=== PATIENT | male | born 1985 | race Caucasian/White ===

== ENCOUNTER 2017-11-22 12:48 | Inpatient (IN) | payer OTHER ==
[2017-11-22 13:46] VITALS: BMI 23.3
--- NOTE | 2017-11-22 15:28 | HP ---
COWS - Scale Resting Pulse: 1= MI 81-100 Sweatin=Flushed/Facial Moisture Restless Observation: 3= Extraneous Movement Pupil Size: 0= Normal to Room Light Bone or Joint Aches: 4=Acute Joint/Muscle Pain Runny Nose/ Eye Tearin= Runny Nose/Eyes GI Upset > 30mins: 3= Vomiting/Diarrhea Tremor Observation: 1= Tremor [place], Not Seen Yawning Observation: 2= >3x During Session Anxiety or Irritability: 2=Irritable/Anxious Goose Flesh Skin: 0=Smooth Skin COWS Score: 20 CIWA Score - CIWA Score Nausea/Vomitin Muscle Tremors: 3 Anxiety: 4-Mod. Anxious/Guarded Agitation: 4-Moderately Restless Paroxysmal Sweats: 3 Orientation: 2-Disoriented Date<2 days Tacttile Disturbances: 2-Mild Itch/Numbness/Burn Auditory Disturbances: 0-None Visual Disturbances: 0-None Headache: 1-Very Mild CIWA-Ar Total Score: 24 Admission ROS [facility] - HPI Chief Complaint: " I want to try clean myself up a little bit and leave a better life for my family" Allergies/Adverse Reactions: Allergies Allergy/AdvReac Type Severity Reaction Status Date / Time No Known Allergies Allergy Verified 11/22/17 14:14 History of Present Illness: 32 year old male with a 16 year history of poly substance abuse presents for detox. This is pt's first visit here but states he had detox this last October at [facility]. Denies any remarkable sober periods. Denies past or present SI. Hx of Thyroid CA, Thyroidectomy (2017) (on Synthroid. Exam Limitations: Other (Anxious, Agitated) - Ebola screening Have you traveled outside of the country in the last 21 days: No (N) Have you had contact with anyone from an Ebola affected area: No Have you been sick,other than usual withdrawal symptoms: No Do you have a fever: No - Review of Systems Constitutional: No Symptoms Reported EENT: reports: Hearing Loss (Dimished hearing in R ear), Other (wears incisor dentures) Respiratory: reports: No Symptoms reported Cardiac: reports: Lightheadedness GI: reports: Vomiting : reports: No Symptoms Reported Musculoskeletal: reports: Back Pain Integumentary: reports: Bruising Neuro: reports: Headache, Tingling Endocrine: reports: Intolerance to Cold Hematology: reports: Anemia Psychiatric: reports: Agitated, Anxious Other Systems: Reviewed and Negative Patient History - Patient Medical History Hx Anemia: No Hx Asthma: No Hx Chronic Obstructive Pulmonary Disease (COPD): No Hx Cancer: No Hx Cardiac Disorders: No Hx Congestive Heart Failure: No Hx Hypertension: No Hx Hypercholesterolemia: No Hx Pacemaker: No HX Cerebrovascular Accident: No Hx Seizures: No Hx Diabetes: No Hx Gastrointestinal Disorders: No Hx Liver Disease: No Hx Genitourinary Disorders: No Hx Sexually Transmitted Disorders: No Hx Renal Disease (ESRD): No Hx Thyroid Disease: Yes (On synthroid - thyroid CA) Hx Human Immunodeficiency Virus (HIV): No Hx Hepatitis C: No Hx Depression: Yes Hx Suicide Attempt: No Hx Bipolar Disorder: No Hx Schizophrenia: No - Patient Surgical History Past Surgical History: Yes Other Surgical History: Pt had thyroidectomy at age 26 yrs old. Anesthesia Reaction: No - PPD History Previous Implant?: Yes Documented Results: Negative w/o proof Implanted On Prior [facility] Admission?: No PPD to be Administered?: Yes - Reproductive History Patient is a Female of Child Bearing Age (11 -55 yrs old): No - Smoking Cessation Smoking history: Current every day smoker Have you smoked in the past 12 months: Yes Aproximately how many cigarettes per day: 20 Hx Chewing Tobacco Use: No Initiated information on smoking cessation: Yes 'Breaking Loose' booklet given: 11/22/17 - Substances Abused Alprazolam (Xanax) Route: Oral Frequency: Daily Amount used: 4-10 2MG PILLS Age of first use: 21 Date of Last Use: 11/22/17 Cocaine Route: Smoking Frequency: Daily Amount used: 2-3 BAGS Age of first use: 18 Date of Last Use: 11/21/17 Marijuana/Hashish Route: Smoking Frequency: 1-2 times per week Amount used: 1 BLUNT Age of first use: 18 Date of Last Use: 11/20/17 Alcohol Route: Oral Frequency: Daily Amount used: 2 PINTS Age of first use: 20 Date of Last Use: 11/22/17 PERCOCET Route: Oral Frequency: Daily Amount used: 30MG Age of first use: 26 Date of Last Use: 11/18/17 Family Disease History - Family Disease History Family History: Unremarkable Family Disease History: Diabetes: Father (Neck), CA: Grandparent, Father Admission Physical Exam [facility] - Vital Signs Vital Signs: Vital Signs - 24 hr 11/22/17 13:45 Temperature 97 F L Pulse Rate 100 H Respiratory 18 Rate Blood Pressure 125/72 - Physical General Appearance: Yes: Moderate Distress, Irritable, Anxious HEENTM: Yes: Nasal Congestion Respiratory: Yes: Lungs Clear, Normal Breath Sounds, No Respiratory Distress, No Accessory Muscle Use Neck: Yes: Within Normal Limits Breast: Yes: Breast Exam Deferred Cardiology: Yes: Tachycardia Abdominal: Yes: Non Tender, Soft Genitourinary: Yes: Within Normal Limits Back: Yes: Normal Inspection Musculoskeletal: Yes: full range of Motion, Gait Steady Extremities: Yes: Normal Capillary Refill, Normal Inspection Neurological: Yes: Alert Integumentary: Yes: Normal Color, Warm Lymphatic: Yes: Within Normal Limits - Diagnostic (1) Opioid dependence with uncomplicated intoxication Current Visit: Yes Status: Acute (2) Alcohol dependence with uncomplicated intoxication Current Visit: Yes Status: Acute (3) Sedative, hypnotic or anxiolytic abuse with intoxication, uncomplicated Current Visit: Yes Status: Acute (4) Nicotine dependence Current Visit: Yes Status: Acute (5) Cocaine dependence Current Visit: Yes Status: Acute (6) Marijuana dependence Current Visit: Yes Status: Acute (7) History of thyroidectomy Current Visit: Yes Status: Chronic (8) Hx of thyroid cancer Current Visit: Yes Status: Resolved (9) Depressed affect Current Visit: Yes Status: Suspected Cleared for Admission [facility] - Detox or Rehab [facility] Level of Care: Medically Managed Detox Regimen/Protocol: Methadone/Valium [facility] Breath Alcohol Content Breath Alcohol Content: 0 Urine Drug Screen - Results Drug Screen Negative: No Urine Drug Screen Results: THC-Marijuana, YANI-Cocaine, BZO-Benzodiazepines
[2017-11-22] MEDS ORDERED: MAGNESIUM HYDROX 2400MG/30ML ORAL SUSPENSION 30 ML CUP PO PRN (15:46)
[2017-11-22] MEDS ORDERED: NICOTINE POLACRILEX 2 MG GUM BUC PRN (15:46)
[2017-11-22] MEDS ORDERED: guaiFENesin/D-METHORPHAN HB 10 ML UNIT-DOSE CUPS PO PRN (15:46)
[2017-11-22] MEDS ORDERED: IBUPROFEN 400 MG TABLET (FP) PO PRN (15:46)
[2017-11-22] MEDS ORDERED: MAG HYDROX/AL HYDROX/SIMETH 30 ML UNIT-DOSE CUP PO PRN (15:46)
[2017-11-22] MEDS ORDERED: LOPERAMIDE HCL 2 MG CAPSULE PO PRN (15:46)
[2017-11-22] MEDS ORDERED: MENTHOL/PHENOL 1 EACH UD MM PRN (15:46)
[2017-11-22] MEDS ORDERED: MAGNESIUM CITRATE 300 ML BOTTLE PO PRN (15:46)
[2017-11-22] MEDS ORDERED: ACETAMINOPHEN 325 MG TABLET (FP) PO PRN (15:46)
[2017-11-22] MEDS ORDERED: P-EPHED 60MG/TRIPROLIDI 2.5MG TABLET PO PRN (15:46)
[2017-11-22] MEDS ORDERED: METHADONE HCL 10 MG TABLET (FOR DETOX USE ONLY) PO ONE ×2 (16:00→23:00)
[2017-11-22] MEDS ORDERED: diazePAM 5 MG TABLET PO ONE (16:00)
[2017-11-22] MEDS: NICOTINE 21 MG/24 HOURS TOPICAL PATCH TD SCH (17:11)
[2017-11-22] MEDS ORDERED: MELATONIN 5 MG TABLETS PO PRN (22:00)
[2017-11-22] MEDS: THIAMINE HCL 100 MG TABLET (FP) PO SCH (22:33)
[2017-11-22] MEDS: diazePAM 5 MG TABLET PO SCH (22:34)
[2017-11-23] MEDS: diazePAM 5 MG TABLET PO PRN ×4 (01:15→18:03)
[2017-11-23] MEDS: diazePAM 5 MG TABLET PO SCH ×3 (05:17→22:19)
[2017-11-23] MEDS ORDERED: LEVOTHYROXINE NA 25 MCG TABLET (FP) ONE (08:22)
[2017-11-23] MEDS ORDERED: LEVOTHYROXINE NA 100 MCG TABLET (FP) ONE (08:22)
[2017-11-23] MEDS: LEVOTHYROXINE 100 MCG, LEVOTHYROXINE 50 MCG PO SCH (08:24)
[2017-11-23] MEDS ORDERED: LEVOTHYROXINE NA 150 MCG TABLET PO SCH (10:00)
[2017-11-23] MEDS ORDERED: METHADONE HCL 10 MG TABLET (FOR DETOX USE ONLY) PO SCH (10:00)
[2017-11-23 10:35] LABS: HEMATOCRIT 39.3 % (35.4-49); HEMOGLOBIN 13.5 GM/dL (11.7-16.9); MCH 31.3 pg (25.7-33.7); MCHC 34.5 g/dl (32.0-35.9); MEAN CELL VOLUME 90.6 fl (80-96); MEAN PLT VOLUME 8.2 fl (7.5-11.1); PLATELET COUNT 293 K/MM3 (134-434); RBC 4.33 M/mm3 (4.00-5.60); RDW 13.9 % (11.9-15.9); WHITE BLOOD COUNT 7.5 K/mm3 (4.0-10.0)
[2017-11-23] MEDS: NICOTINE 21 MG/24 HOURS TOPICAL PATCH TD SCH (10:50)
[2017-11-23] MEDS: PRENATAL VITAMINS W/ FOLIC ACID TABLET (FP) PO SCH (10:50)
[2017-11-23 10:53] LABS: CHLORIDE 102 mmol/L (98-107); POTASSIUM 3.6 mmol/L (3.5-5.1); SODIUM 139 mmol/L (136-145)
[2017-11-23 11:00] LABS: ALBUMIN 3.8 g/dl (3.4-5.0); ALK PHOS 59 U/L (45-117); ANION GAP 7 (8-16); BILIRUBIN,TOTAL 1.2 mg/dL (0.2-1.0); BLOOD UREA NITROGEN 14 mg/dL (7-18); CALCIUM 8.2 mg/dL (8.5-10.1); CO2 30 mmol/L (21-32); GLUCOSE,RANDOM 63 mg/dL (74-106); SGOT/AST 16 U/L (15-37); SGPT/ALT 32 U/L (12-78); TOT PROT 6.1 g/dl (6.4-8.2)
--- NOTE | 2017-11-23 11:01 | PN ---
S CIWA - CIWA Score Nausea/Vomitin-No Nausea/No Vomiting Muscle Tremors: 4-Moderate,w/Arms Extend Anxiety: 4-Mod. Anxious/Guarded Agitation: 4-Moderately Restless Paroxysmal Sweats: 1-Minimal Palms Moist Orientation: 0-Oriented Tacttile Disturbances: 0-None Auditory Disturbances: 0-None Visual Disturbances: 0-None Headache: 0-None Present CIWA-Ar Total Score: 13 S Progress Note (SOAP) Subjective: ANXIETY,IRRITABILITY,HOT/COLD SWEATS,RUNNY NOSE,MUSCLE/JOINT ACHES,INTERMITTENT SLEEP. Objective: 11/23/17 11:01 Vital Signs 11/23/17 11/23/17 11/23/17 03:30 06:09 06:30 Temperature 96.9 F L Pulse Rate 56 L Respiratory 18 18 18 Rate Blood Pressure 81/53 11/23/17 11/23/17 07:43 09:20 Temperature 97.5 F L Pulse Rate 69 66 Respiratory 18 Rate Blood Pressure 110/66 106/67 Laboratory Tests 11/23/17 07:30 WBC 7.5 RBC 4.33 Hgb 13.5 Hct 39.3 MCV 90.6 MCH 31.3 MCHC 34.5 RDW 13.9 Plt Count 293 MPV 8.2 OTHER LABS PENDING Assessment: 11/23/17 11:01 WITHDRAWAL SX Plan: CONTINUE DETOX
--- NOTE | 2017-11-23 13:17 | EKG ---
Test Reason : Blood Pressure : / mmHG Vent. Rate : 074 BPM Atrial Rate : 074 BPM P-R Int : 156 ms QRS Dur : 100 ms QT Int : 410 ms P-R-T Axes : 069 074 049 degrees QTc Int : 455 ms NORMAL SINUS RHYTHM WITH SINUS ARRHYTHMIA NORMAL ECG NO PREVIOUS ECGS AVAILABLE Confirmed by Landon Suggs MD ([id number]) on 11/23/2017 1:16:26 PM Referred By: Confirmed By:Landon Suggs MD
[2017-11-23] MEDS: CYCLOBENZAPRINE HCL 10 MG TABLET (FP) PO SCH ×2 (13:48→22:19)
[2017-11-23 14:57] LABS: URINE APPEARANCE CLEAR; URINE BILIRUBIN NEGATIVE (<2.0 mg/dL); URINE COLOR YELLOW; URINE GLUCOSE (UA) 3+ (NEGATIVE); URINE KETONE NEGATIVE (NEGATIVE); URINE LEUK ESTERASE NEGATIVE (NEGATIVE); URINE NITRITE NEGATIVE (NEGATIVE); URINE PROTEIN NEGATIVE (NEGATIVE); URINE UROBILINOGEN NEGATIVE mg/dL (0.2-1.0)
--- NOTE | 2017-11-23 18:07 | CONSULT ---
[facility] Psychiatric Consult - Data Date of interview: 11/23/17 Admission source: [facility] Identifying data: First admission to [facility] for this 32 y/o male from [place] ancestry seeking detox treatment on for opioid,cocaine ( crack),cannabis,xanax and alcohol dependence.Patient is ,a father of two, domiciled,unemployed and deprived of any source of income. Substance Abuse History: Discussed in this interview.Confirmed by patient : Smoking history: Current every day smoker. Have you smoked in the past 12 months: Yes. Aproximately how many cigarettes per day: 20. Hx Chewing Tobacco Use: No. Initiated information on smoking cessation: Yes. 'Breaking Loose' booklet given: 11/22/17. - Substances Abused. Alprazolam (Xanax). Route: Oral. Frequency: Daily. Amount used: 4-10 2MG PILLS. Age of first use: 21. Date of Last Use: 11/22/17. Cocaine. Route: Smoking. Frequency: Daily. Amount used: 2-3 BAGS. Age of first use: 18. Date of Last Use: 11/21/17. Marijuana/Hashish. Route: Smoking. Frequency: 1-2 times per week. Amount used : 1 BLUNT. Age of first use: 18. Date of Last Use: 11/20/17. Alcohol. Route: Oral. Frequency: Daily. Amount used: 2 PINTS. Age of first use: 20. Date of Last Use: 11/22/17. PERCOCET. Route: Oral. Frequency: Daily. Amount used: 30MG. Age of first use: 26. Date of Last Use: 11/18/17 Medical History: Diagnosed with thyroid cancer (age 26).History of thyroidectomy.Maintained on synthroid. Psychiatric History: Patient denies. Physical/Sexual Abuse/Trauma History: Patient denies. Additional Comment: Urine Drug Screen Results: THC-Marijuana, YANI-Cocaine, BZO- Benzodiazepines.Noted. Released after four years of incarceration.Charges not disclosed.Currently on parole. Mental Status Exam - Mental Status Exam Alert and Oriented to: Time, Place, Person Cognitive Function: Good Patient Appearance: Well Groomed (tattoos on both arms + forearms) Mood: Nervous, Anxious, Apprehensive Affect: Mood Congruent Patient Behavior: Fatigued, Cooperative Speech Pattern: Clear (stateless-speaking) Voice Loudness: Normal Thought Process: Intact, Goal Oriented Thought Disorder: Not Present Hallucinations: Denies Suicidal Ideation: Denies Homicidal Ideation: Denies Insight/Judgement: Poor Sleep: Poorly, Difficulty falling asleep Appetite: Good Muscle strength/Tone: Normal Gait/Station: Normal Psychiatric Findings - Problem List ([place] 1, 2,3) (1) Alcohol dependence with uncomplicated intoxication Current Visit: Yes Status: Acute (2) Cocaine dependence Current Visit: Yes Status: Acute Qualifiers: Substance use status: uncomplicated Qualified Code(s): F14.20 - Cocaine dependence, uncomplicated (3) Marijuana dependence Current Visit: Yes Status: Acute (4) Sedative, hypnotic or anxiolytic abuse with intoxication, uncomplicated Current Visit: Yes Status: Acute (5) Nicotine dependence Current Visit: Yes Status: Acute Qualifiers: Nicotine product type: cigarettes Substance use status: in withdrawal Qualified Code(s): F17.213 - Nicotine dependence, cigarettes, with withdrawal (6) Substance induced mood disorder Current Visit: Yes Status: Acute (7) Insomnia Current Visit: Yes Status: Acute - Initial Treatment Plan Initial Treatment Plan: Psychoeducation.Sleep hygiene.Detoxification.Seroquel 100 mg po hs (patient's request).Side effects/benefits discussed with the patient.Mr Brooks reports that seroquel has been effective in the past for the management of his chronic insomnia and mood stabilization.Well tolerated , as per patient.Consent (verbal) : given.Observation.
[2017-11-23] MEDS: QUEtiapine FUMARATE 100 MG TABLET (FP) PO SCH (22:19)
[2017-11-23] MEDS: THIAMINE HCL 100 MG TABLET (FP) PO SCH (22:19)
[2017-11-24] MEDS ORDERED: LEVOTHYROXINE NA 25 MCG TABLET (FP) ONE (04:53)
[2017-11-24] MEDS ORDERED: LEVOTHYROXINE NA 100 MCG TABLET (FP) ONE (04:53)
[2017-11-24] MEDS: diazePAM 5 MG TABLET PO PRN ×2 (06:58→17:16)
[2017-11-24] MEDS: LEVOTHYROXINE 100 MCG, LEVOTHYROXINE 50 MCG PO SCH (07:00)
[2017-11-24] MEDS: CYCLOBENZAPRINE HCL 10 MG TABLET (FP) PO SCH ×3 (07:00→22:22)
[2017-11-24] MEDS ORDERED: METHADONE HCL 5 MG TABLET (FOR DETOX USE ONLY) PO SCH (10:00)
[2017-11-24] MEDS: PRENATAL VITAMINS W/ FOLIC ACID TABLET (FP) PO SCH (10:22)
[2017-11-24] MEDS: NICOTINE 21 MG/24 HOURS TOPICAL PATCH TD SCH (10:22)
[2017-11-24] MEDS: diazePAM 5 MG TABLET PO SCH ×2 (10:23→22:22)
--- NOTE | 2017-11-24 11:39 | PN ---
[facility] CIWA - CIWA Score Nausea/Vomitin-No Nausea/No Vomiting Muscle Tremors: 3 Anxiety: 3 Agitation: 3 Paroxysmal Sweats: 1-Minimal Palms Moist Orientation: 0-Oriented Tacttile Disturbances: 0-None Auditory Disturbances: 0-None Visual Disturbances: 0-None Headache: 0-None Present CIWA-Ar Total Score: 10 S Progress Note (SOAP) Subjective: PT REPORTS DETOX AND PSYCH MANAGEMENT EFFECTIVE AND LESS WITHDRAWAL SX TODAY. ALERT O X 3. OOB AMBULATING WITH STEADY GAIT. LESS IRRITABILITY TODAY. Objective: 11/24/17 11:38 Vital Signs 11/24/17 11/24/17 11/24/17 06:30 07:00 10:47 Temperature 97.5 F L 96.9 F L Pulse Rate 77 76 Respiratory 16 16 20 Rate Blood Pressure 111/63 118/68 Laboratory Tests 11/23/17 11/23/17 11/23/17 07:30 07:30 07:30 WBC 7.5 RBC 4.33 Hgb 13.5 Hct 39.3 MCV 90.6 MCH 31.3 MCHC 34.5 RDW 13.9 Plt Count 293 MPV 8.2 Sodium 139 Potassium 3.6 Chloride 102 Carbon Dioxide 30 Anion Gap 7 L BUN 14 Creatinine 1.0 Creat Clearance w eGFR > 60 Random Glucose 63 L Calcium 8.2 L Total Bilirubin 1.2 H AST 16 ALT 32 Alkaline Phosphatase 59 Total Protein 6.1 L Albumin 3.8 Urine Color Urine Appearance Urine pH Ur Specific [place] Urine Protein Urine Glucose (UA) Urine Ketones Urine Blood Urine Nitrite Urine Bilirubin Urine Urobilinogen Ur Leukocyte Esterase RPR Titer Nonreactive 11/23/17 09:30 WBC RBC Hgb Hct MCV MCH MCHC RDW Plt Count MPV Sodium Potassium Chloride Carbon Dioxide Anion Gap BUN Creatinine Creat Clearance w eGFR Random Glucose Calcium Total Bilirubin AST ALT Alkaline Phosphatase Total Protein Albumin Urine Color Yellow Urine Appearance Clear Urine pH 5.0 Ur Specific [place] 1.022 Urine Protein Negative Urine Glucose (UA) 3+ H Urine Ketones Negative Urine Blood Negative Urine Nitrite Negative Urine Bilirubin Negative Urine Urobilinogen Negative Ur Leukocyte Esterase Negative RPR Titer Assessment: 11/24/17 11:38 WITHDRAWAL SX Plan: CONTINUE DETOX
[2017-11-24] MEDS: THIAMINE HCL 100 MG TABLET (FP) PO SCH (22:21)
[2017-11-24] MEDS: QUEtiapine FUMARATE 100 MG TABLET (FP) PO SCH (22:22)
[2017-11-25] MEDS ORDERED: LEVOTHYROXINE NA 25 MCG TABLET (FP) ONE (04:41)
[2017-11-25] MEDS ORDERED: LEVOTHYROXINE NA 100 MCG TABLET (FP) ONE (04:42)
[2017-11-25] MEDS: LEVOTHYROXINE 100 MCG, LEVOTHYROXINE 50 MCG PO SCH (07:36)
[2017-11-25] MEDS: CYCLOBENZAPRINE HCL 10 MG TABLET (FP) PO SCH ×3 (07:36→22:36)
[2017-11-25] MEDS: diazePAM 5 MG TABLET PO PRN ×2 (07:36→12:24)
[2017-11-25] MEDS: PRENATAL VITAMINS W/ FOLIC ACID TABLET (FP) PO SCH (10:48)
[2017-11-25] MEDS: diazePAM 5 MG TABLET PO SCH ×2 (10:48→22:36)
[2017-11-25] MEDS: NICOTINE 21 MG/24 HOURS TOPICAL PATCH TD SCH (10:48)
--- NOTE | 2017-11-25 12:43 | PN ---
[facility] Progress Note (SOAP) Subjective: DECREASED ANXIETY,SWEATS,IRRITABILITY. DETOX PROTOCOL EFFECTIVE PER PATIENT. Objective: 11/25/17 12:42 Vital Signs 11/25/17 11/25/17 11/25/17 06:30 07:35 11:14 Temperature 98.3 F 97.6 F Pulse Rate 68 87 Respiratory 16 18 20 Rate Blood Pressure 98/62 116/68 Laboratory Tests 11/23/17 11/23/17 11/23/17 07:30 07:30 07:30 WBC 7.5 RBC 4.33 Hgb 13.5 Hct 39.3 MCV 90.6 MCH 31.3 MCHC 34.5 RDW 13.9 Plt Count 293 MPV 8.2 Sodium 139 Potassium 3.6 Chloride 102 Carbon Dioxide 30 Anion Gap 7 L BUN 14 Creatinine 1.0 Creat Clearance w eGFR > 60 Random Glucose 63 L Calcium 8.2 L Total Bilirubin 1.2 H AST 16 ALT 32 Alkaline Phosphatase 59 Total Protein 6.1 L Albumin 3.8 Urine Color Urine Appearance Urine pH Ur Specific [place] Urine Protein Urine Glucose (UA) Urine Ketones Urine Blood Urine Nitrite Urine Bilirubin Urine Urobilinogen Ur Leukocyte Esterase RPR Titer Nonreactive 11/23/17 09:30 WBC RBC Hgb Hct MCV MCH MCHC RDW Plt Count MPV Sodium Potassium Chloride Carbon Dioxide Anion Gap BUN Creatinine Creat Clearance w eGFR Random Glucose Calcium Total Bilirubin AST ALT Alkaline Phosphatase Total Protein Albumin Urine Color Yellow Urine Appearance Clear Urine pH 5.0 Ur Specific [place] 1.022 Urine Protein Negative Urine Glucose (UA) 3+ H Urine Ketones Negative Urine Blood Negative Urine Nitrite Negative Urine Bilirubin Negative Urine Urobilinogen Negative Ur Leukocyte Esterase Negative RPR Titer Assessment: 11/25/17 12:43 WITHDRAWAL SX Plan: CONTINUE DETOX
[2017-11-25] MEDS ORDERED: PT OWN MED DRAWER 7, Y5N ONE (21:29)
[2017-11-25] MEDS: THIAMINE HCL 100 MG TABLET (FP) PO SCH (22:36)
[2017-11-25] MEDS: QUEtiapine FUMARATE 100 MG TABLET (FP) PO SCH (22:36)
[2017-11-26] MEDS ORDERED: LEVOTHYROXINE NA 100 MCG TABLET (FP) ONE (03:51)
[2017-11-26] MEDS ORDERED: LEVOTHYROXINE NA 25 MCG TABLET (FP) ONE (03:51)
[2017-11-26] MEDS: CYCLOBENZAPRINE HCL 10 MG TABLET (FP) PO SCH (05:54)
[2017-11-26] MEDS: LEVOTHYROXINE 100 MCG, LEVOTHYROXINE 50 MCG PO SCH (06:05)
[2017-11-26 06:19] VITALS: BP 115/65; PULSE 69; TEMP 96.7
[2017-11-26] MEDS ORDERED: METHADONE HCL 10 MG TABLET (FOR DETOX USE ONLY) PO SCH (10:00)
[2017-11-26] MEDS ORDERED: diazePAM 5 MG TABLET PO SCH (10:00)
--- NOTE | 2017-11-26 12:48 | PN ---
[facility] Progress Note (SOAP) Subjective: DETOX COMPLETED. ALERT O X 3. NAD. PT REPORTS HE GOES TO DR GEORGE AT [facility] IN [place] FOR PRIMARY CARE. Objective: 11/26/17 12:48 Vital Signs 11/26/17 06:19 Temperature 96.7 F L Pulse Rate 69 Respiratory 18 Rate Blood Pressure 115/65 Laboratory Tests 11/23/17 11/23/17 11/23/17 07:30 07:30 07:30 WBC 7.5 RBC 4.33 Hgb 13.5 Hct 39.3 MCV 90.6 MCH 31.3 MCHC 34.5 RDW 13.9 Plt Count 293 MPV 8.2 Sodium 139 Potassium 3.6 Chloride 102 Carbon Dioxide 30 Anion Gap 7 L BUN 14 Creatinine 1.0 Creat Clearance w eGFR > 60 Random Glucose 63 L Calcium 8.2 L Total Bilirubin 1.2 H AST 16 ALT 32 Alkaline Phosphatase 59 Total Protein 6.1 L Albumin 3.8 Urine Color Urine Appearance Urine pH Ur Specific [place] Urine Protein Urine Glucose (UA) Urine Ketones Urine Blood Urine Nitrite Urine Bilirubin Urine Urobilinogen Ur Leukocyte Esterase RPR Titer Nonreactive 11/23/17 09:30 WBC RBC Hgb Hct MCV MCH MCHC RDW Plt Count MPV Sodium Potassium Chloride Carbon Dioxide Anion Gap BUN Creatinine Creat Clearance w eGFR Random Glucose Calcium Total Bilirubin AST ALT Alkaline Phosphatase Total Protein Albumin Urine Color Yellow Urine Appearance Clear Urine pH 5.0 Ur Specific [place] 1.022 Urine Protein Negative Urine Glucose (UA) 3+ H Urine Ketones Negative Urine Blood Negative Urine Nitrite Negative Urine Bilirubin Negative Urine Urobilinogen Negative Ur Leukocyte Esterase Negative RPR Titer Assessment: 11/26/17 12:48 MEDICALLY STABLE Plan: D/C PT TODAY FOLLOW UP WITH AFTERCARE
--- NOTE | 2017-11-26 12:50 | DS ---
[facility] Detox Discharge Summary Admission Date: 11/22/17 Discharge Date: 11/26/17 - History Present History: Alcohol Dependence, Cannabis Dependence, Cocaine Dependence, Sedative Dependence Additional Comments: DETOX COMPLETED..ALERT O X 3. NAD. Pertinent Past History: PLEASE SEE DX BELOW - Physical Exam Results Vital Signs: Vital Signs Temperature 96.7 F L 11/26/17 06:19 Pulse Rate 69 11/26/17 06:19 Respiratory Rate 18 11/26/17 06:19 Blood Pressure 115/65 11/26/17 06:19 O2 Sat by Pulse Oximetry (%) Pertinent Admission Physical Exam Findings: WITHDRAWAL SX Laboratory Tests 11/23/17 11/23/17 11/23/17 07:30 07:30 07:30 WBC 7.5 RBC 4.33 Hgb 13.5 Hct 39.3 MCV 90.6 MCH 31.3 MCHC 34.5 RDW 13.9 Plt Count 293 MPV 8.2 Sodium 139 Potassium 3.6 Chloride 102 Carbon Dioxide 30 Anion Gap 7 L BUN 14 Creatinine 1.0 Creat Clearance w eGFR > 60 Random Glucose 63 L Calcium 8.2 L Total Bilirubin 1.2 H AST 16 ALT 32 Alkaline Phosphatase 59 Total Protein 6.1 L Albumin 3.8 Urine Color Urine Appearance Urine pH Ur Specific [place] Urine Protein Urine Glucose (UA) Urine Ketones Urine Blood Urine Nitrite Urine Bilirubin Urine Urobilinogen Ur Leukocyte Esterase RPR Titer Nonreactive 11/23/17 09:30 WBC RBC Hgb Hct MCV MCH MCHC RDW Plt Count MPV Sodium Potassium Chloride Carbon Dioxide Anion Gap BUN Creatinine Creat Clearance w eGFR Random Glucose Calcium Total Bilirubin AST ALT Alkaline Phosphatase Total Protein Albumin Urine Color Yellow Urine Appearance Clear Urine pH 5.0 Ur Specific [place] 1.022 Urine Protein Negative Urine Glucose (UA) 3+ H Urine Ketones Negative Urine Blood Negative Urine Nitrite Negative Urine Bilirubin Negative Urine Urobilinogen Negative Ur Leukocyte Esterase Negative RPR Titer - Treatment Hospital Course: Detox Protocol Followed, Detoxed Safely, Responded well, Discharged Condition Good - Medication Discharge Medications: Ambulatory Orders Levothyroxine [Synthroid -] 150 mcg PO DAILY 11/22/17 Quetiapine Fumarate [Seroquel] 100 mg PO HS #30 tablet 11/25/17 - Diagnosis (1) Alcohol dependence with uncomplicated intoxication Status: Acute (2) Cocaine dependence Status: Acute Qualifiers: Substance use status: uncomplicated Qualified Code(s): F14.20 - Cocaine dependence, uncomplicated (3) Marijuana dependence Status: Acute (4) Nicotine dependence Status: Acute Qualifiers: Nicotine product type: cigarettes Substance use status: in withdrawal Qualified Code(s): F17.213 - Nicotine dependence, cigarettes, with withdrawal (5) Sedative, hypnotic or anxiolytic abuse with intoxication, uncomplicated Status: Acute (6) History of thyroidectomy Status: Chronic (7) Hx of thyroid cancer Status: Resolved - AMA Did Patient Leave Against Medical Advice: No
[2017-11-27] MEDS ORDERED: METHADONE HCL 5 MG TABLET (FOR DETOX USE ONLY) PO SCH (06:00)
== END 2017-11-26 08:55 | disposition home or self-care (01) | DRG 773 ==
LOC: YASAS 12:48 → Y3N 15:31
PROVIDERS: ADMIT Surgery; ATTEND Surgery
PROC: HZ2ZZZZ Detoxification Services for Substance Abuse Treatment (ICD-10-PCS; principal; 2017-11-22)
DX: F11.23 Opioid dependence with withdrawal (principal); F11.220 Opioid dependence with intoxication, uncomplicated; F10.220 Alcohol dependence with intoxication, uncomplicated; F13.230 Sedative, hypnotic or anxiolytic dependence with withdrawal, uncomplicated; F14.20 Cocaine dependence, uncomplicated; F12.20 Cannabis dependence, uncomplicated; F17.213 Nicotine dependence, cigarettes, with withdrawal; F19.24 Other psychoactive substance dependence with psychoactive substance-induced mood disorder; F32.9 Major depressive disorder, single episode, unspecified; E89.0 Postprocedural hypothyroidism; Z85.850 Personal history of malignant neoplasm of thyroid; G47.00 Insomnia, unspecified; R00.0 Tachycardia, unspecified
CPT/HCPCS: 36415; 71046-TC-FY; 80053; 81003; 85027; 86593; 93005; 93010